=== PATIENT | male | born 1965 | race Caucasian/White ===

== ENCOUNTER 2018-04-24 14:45 | Emergency (ER) | payer OTHER ==
[~2018-04-24] VITALS: Ht 182.9 cm; Wt 111.1 kg
[2018-04-24 14:56] VITALS: BP 178/96
--- NOTE | 2018-04-24 14:59 | NUR ---
PATIENT AMBULATED TO BED 2 AT THIS TIME.
--- NOTE | 2018-04-24 15:05 | NUR ---
PATIENT PRESENTS TO ED WITH C/O DIZZINESS WITH BLURRED VISION TODAY . AAOX4 WITH EVEN AND STEADY GAIT; LUNGS CLEAR BL; HR EVEN AND REGULAR; PT DENIES ANY FEVER, CP, SOB, OR COUGH AT THIS TIME; DENIES N/V/D; SKIN IS PINK/WARM/DRY;DENIES PAIN, VSS; PATIENT POSITIONED FOR COMFORT; HOB ELEVATED; BEDRAILS UP X2; BED DOWN. ER MD MADE AWARE OF PT STATUS.
[2018-04-24 16:05] LABS: BASOPHILS # (AUTO) 0.1 K/uL (0.00-0.22); BASOPHILS % (AUTO) 0.6 % (0.0-2.0); EOSINOPHILS # (AUTO) 0.1 K/uL (0-0.4); EOSINOPHILS % (AUTO) 0.9 % (0.0-4.0); HEMATOCRIT 59.7 % (36-52); HEMOGLOBIN 19.9 g/dL (12.0-18.0); LYMPHOCYTES # (AUTO) 1.8 K/uL (2.0-11.5); LYMPHOCYTES % (AUTO) 13.7 % (20.5-51.1); MEAN CORPUSCULAR HEMOGLOBIN 32 pg (27-31); MEAN CORPUSCULAR HGB CONC 33 g/dL (33-37); MEAN CORPUSCULAR VOLUME 96.2 fL (80-94); MONOCYTES # (AUTO) 1.4 K/uL (0.8-1.0); NEUTROPHILS # (AUTO) 9.6 K/uL (1.8-7.7); NEUTROPHILS % (AUTO) 73.8 % (42.2-75.2); RED CELL DISTRIBUTION WIDTH 15.8 % (11.6-13.7)
[2018-04-24 16:11] LABS: PLATELET COUNT (AUTO) 70 K/uL (140-450)
[2018-04-24 16:21] LABS: CARBON DIOXIDE 31.4 mmol/L (21-32); CREATININE 1.3 mg/dL (0.7-1.3); POTASSIUM 4.4 mmol/L (3.5-5.1)
[2018-04-24 16:27] LABS: ALBUMIN 3.9 g/dL (3.4-5.0); TOTAL BILIRUBIN 0.9 mg/dL (0.0-1.0)
--- NOTE | 2018-04-24 16:30 | NUR ---
PT IS ASLEEP IN BED, NO S/S OF DISTRESS, FAMILY MEMBER AT BEDSIDE.
--- NOTE | 2018-04-24 18:05 | NUR ---
Patient being evaluated by physician at bedside.
[2018-04-24] MEDS ORDERED: NACL 0.9% 1,000 ML IV ONE (18:10)
[2018-04-24] MEDS ORDERED: MECLIZINE 25 MG TAB PO ONE (18:25)
--- NOTE | 2018-04-24 18:25 | NUR ---
PT STATES THAT HE IS STILL DIZZY AND IT IS WORSE WITH HEAD ROTATION, DR THIBODEAUX MADE AWARE
--- NOTE | 2018-04-24 18:40 | NUR ---
DR. THIBODEAUX SPEAKING WITH PATIENT.
[2018-04-24 19:35] VITALS: BP 140/82
--- NOTE | 2018-04-24 19:35 | NUR ---
Patient discharged with v/s stable. Written and verbal after care instructions given and explained. Patient alert, oriented and verbalized understanding of instructions. Ambulatory with steady gait. All questions addressed prior to discharge. ID band removed. Patient advised to follow up with PMD. Rx of MECLIZINE 25MG given. Patient educated on indication of medication including possible reaction and side effects. Opportunity to ask questions provided and answered.
== END 2018-04-24 19:35 | disposition home or self-care (01) ==
LOC: MED 14:45
DX: R42 Dizziness and giddiness (principal); E11.9 Type 2 diabetes mellitus without complications; I10 Essential (primary) hypertension; F17.200 Nicotine dependence, unspecified, uncomplicated
CPT/HCPCS: 36415; 80053; 85025; 96360; 99284; J7030; J8597